=== PATIENT | female | born 1975 | race Caucasian/White ===

== ENCOUNTER → 2018-05-07 | Outpatient (REF) | payer BC | END | disposition home or self-care (01) | DRG 552 | LOC: DI 10:30 | PROVIDERS: ATTEND Nurse Practitioner | DX: M54.5 Low back pain (principal); M54.2 Cervicalgia; M79.642 Pain in left hand; M79.641 Pain in right hand ==

== ENCOUNTER → 2018-05-07 | Outpatient (REF) | END | disposition home or self-care (01) | DRG 696 | LOC: LABSPEC 10:31 | PROVIDERS: ATTEND Nurse Practitioner | DX: R30.0 Dysuria (principal) ==

== ENCOUNTER 2020-02-15 17:17 | Emergency (ER) | payer BC ==
[~2020-02-15] VITALS: Ht 167.6 cm; Wt 100.0 kg
[2020-02-15] MEDS ORDERED: TOPROL XL50 MG PO (17:37)
[2020-02-15] MEDS ORDERED: NEXIUM40 M1 PO (17:37)
[2020-02-15] MEDS ORDERED: CLARITIN10 M1 PO (17:37)
[2020-02-15] MEDS ORDERED: NORVASC PO (17:38)
[2020-02-15] MEDS ORDERED: ZOFRAN4 MG/TAB PO (19:22)
[2020-02-15 19:35] VITALS: BP 166/93
--- NOTE | 2020-02-17 11:22 | NUR ---
Patient called for Covid results. Notifed her of negative Covid results.
== END 2020-02-15 19:35 | disposition home or self-care (01) | DRG 392 ==
LOC: ED 17:17
DX: K52.9 Noninfective gastroenteritis and colitis, unspecified (principal); I10 Essential (primary) hypertension; Z20.828 Contact with and (suspected) exposure to other viral communicable diseases